=== PATIENT | male | born 1960 | race Caucasian/White ===

== ENCOUNTER 2019-01-08 10:33 | Inpatient (IN) ==
[2019-01-08] MEDS ORDERED: Sodium Chloride 0.9% 1,000 ML PRIMARY IV ONE ×2 (10:48→12:27)
[2019-01-08] MEDS ORDERED: ONDANSETRON 4 MG/2 ML VIAL IVP ONE (10:48)
[2019-01-08] MEDS ORDERED: HYDROmorphone 2 MG/1 ML IVP ONE ×3 (10:49→13:54)
[2019-01-08 11:11] LABS: BASOPHILS # (AUTO) 0.05 10*3/UL; BASOPHILS % (AUTO) 0.6 % (0-1); EOSINOPHILS # (AUTO) 0.15 10*3/UL; EOSINOPHILS % (AUTO) 1.8 % (0-8); Hematocrit [HCT] 42.8 % (42.0-52.0); Hemoglobin [HGB] 14.3 g/dL (14.0-18.0); LYMPHOCYTES # (AUTO) 1.52 10*3/uL; MEAN CORPUSCULAR HEMOGLOBIN 27.3 PG (27-31); MEAN CORPUSCULAR HGB CONC 33.4 g/dL (33-37); MEAN CORPUSCULAR VOLUME 81.8 FL (80-90); MEAN PLATELET VOLUME 8.8 FL (7.4-12.2); MONOCYTES # (AUTO) 0.45 10*3/UL (0.3-0.8); MONOCYTES % (AUTO) 5.5 % (5-15); NEUTROPHILS % (AUTO) 73.3 % (50-80); RED BLOOD COUNT 5.23 10^6/uL (4.70-6.10)
[2019-01-08 11:13] LABS: PLATELET MORPHOLOGY COMMENT NORMAL MORPHOLOGY (NORM); RBC MORPHOLOGY COMMENT NORMAL MORPHOLOGY (NORM); WBC MORPHOLOGY COMMENT NORMAL MORPHOLOGY (NORM)
[2019-01-08 11:24] LABS: BLOOD UREA NITROGEN 16 mg/dL (7-22); SERUM ALBUMIN 4.4 g/dL (3.5-4.8)
[2019-01-08 11:38] LABS: LIPASE 1737 IU/L (23-300)
[2019-01-08] MEDS ORDERED: HYDROmorphone 2 MG/1 ML ONE ×2 (12:16→13:47)
--- NOTE | 2019-01-08 12:31 | PDOC ---
HPI - History of Present Illness History of Present Illness: Is a very nice 58-year-old gentleman who comes in with abdominal pain this started this morning. He did have a pancreatitis episode 3 years ago related to alcohol. He stated that last Monday he had a few quite a few drinks. It is not an individual alcoholic pain is improved now he was given hydromorphone 2 mg in the ER and is on IV fluids CAT scan is pending. 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 He used to drink a lot but now is once weekly Past Medical History Medical History: Pancreatitis, hypertension, depression Surgical History: Hernia repair, and tonsils Tobacco Use: Former Smoker In the Past 12 Months, Have Used or Abuse Any of the Following Substance: None Alcohol Use: Occasionally Medication / Allergies Home Medications: Home Medications Medication Instructions Recorded Confirmed Type Atorvastatin Calcium [Lipitor] 20 mg PO DAILY 01/08/19 01/08/19 History FLUoxetine HCl [PROzac] 20 mg PO DAILY 01/08/19 01/08/19 History Hydrochlorothiazide 50 mg PO DAILY 01/08/19 History Allergies/Adverse Reactions: Allergies Allergy/AdvReac Type Severity Reaction Status Date / Time iodine AdvReac Anaphylaxis Verified 01/08/19 10:43 Iodine and Iodide Containing AdvReac Anaphylaxis Verified 01/08/19 10:43 Produc lisinopril AdvReac Anaphylaxis Verified 01/08/19 11:17 Review of Systems - Review of Systems All Systems: Reviewed & No Additional Complaints Except as Stated - Cardiovascular Cardiovascular: DENIES: Negative System Review, Chest Pain, Edema, Syncope, Palpitations, Orthopnea, Paroxysmal Nocturnal Dyspnea, Other, See HPI - Gastrointestinal Gastrointestinal / Abdominal: REPORTS: Nausea, Abdominal Pain. DENIES: Vomiting, Bloody Stool Exam - Vitals Vital Signs: Vital Signs Temperature 97.8 F Temperature Source Temporal Artery Scan Pulse Rate [Pulse Oximeter] 92 Respiratory Rate 16 Blood Pressure [Left Arm] 177/118 Pulse Ox 95 Oxygen Delivery Method Room Air Height 5 ft 9 in Weight 200 lb - General General Appearance: No Acute Distress, Cooperative - Head Head Exam: Normal Inspection, Normocephalic, Atraumatic - Eye Eye Exam: POSITIVE: Normal Appearance, PERRL, EOMI, No Scleral Icterus - Respiratory Respiratory Exam: POSITIVE: Clear to Auscultation - Bilaterally, Breathing Non Labored, Normal To Percussion, Normal to Percussion and Palpation - Cardiovascular Cardiovascular Exam: POSITIVE: RRR, No Murmur, No Clicks, No Gallops, No Rubs, PMI Non-Displaced - GI/Abdominal Additional GI/Abdominal Exam Details: Mild left upper quadrant pain and no guarding or rebound - Extremities Extremities Exam: POSITIVE: No Clubbing Present, No Edema Present, No Cyanosis Present Results - Labs CBC and BMP: 01/08/19 11:05 01/08/19 11:05 Assessment and Plan - Patient Problems (1) Pancreatitis, alcoholic, acute Current Visit: Yes Status: Acute Comment: IV fluids, IV pain control and by mouth Code(s): K85.20 - Alcohol induced acute pancreatitis without necrosis or infection (2) Hypertension Current Visit: Yes Status: Acute Comment: He was just started on the hydrochlorothiazide. Does not think it's working Code(s): I10 - Essential (primary) hypertension (3) Depression Current Visit: Yes Status: Acute Comment: Patient is on SSRI Code(s): F32.9 - Major depressive disorder, single episode, unspecified
--- NOTE | 2019-01-08 12:47 | DI ---
CT ABDOMEN SCAN WITHOUT IV CONTRAST, 01/08/2019 10:48 AM : Clinical History: Upper abdominal pain. The patient has an allergy to IV contrast. Previous Exam: None at this facility. IV Contrast: None administered. Oral Contrast: No oral contrast ordered. Rectal Contrast: No rectal contrast ordered. Lungs: Small left pleural effusion. Calcifications are present in the PDA and right coronary artery. Liver: Normal size. There is a 12 mm low-density lesion in the anterior aspect of the right lobe of t he liver that is close to water density and is consistent with a cyst. Gallbladder: Grossly normal. The common duct is estimated to measure 4 mm. Adrenal Glands: Normal. Spleen: Spleen size is normal but there is a 25 mm low-density lesion in the lower pole. Pancreas: The head and body of the pancreas are disproportionately larger than the distal body and ta il of the pancreas and there is infiltrative/inflammatory change present. This inflammatory/infiltrat honorio change extends into the second portion of the duodenum and extends inferiorly to the junction bet ween the second and third portions of the duodenum. The findings are most consistent with pancreatiti s. There are no pancreatic calcifications or evidence of pseudocysts or of an abscess cavity. Kidneys: Normal size, shape, position and contour. No hydronephrosis or hydroureter. No right renal o r ureteral calculi. There is a nonobstructing 4 mm calculus in a lower pole calyx of the left kidney. The left ureter is normal. Lymph Nodes: Normal. Masses: None. Ascites: No ascites. Free Air: None. Spine: Normal lower thoracic and lumbar spine. READIN. Disproportional enlargement of the head, neck, and proximal portions of the pancreas with [place] creatic inflammatory/infiltrative change. Inflammatory/infiltrative change extends to the second port ion of the duodenum and the inferior to the junction between the second and third portions of the duo denum. The findings are most consistent with acute pancreatitis with inflammatory change of the duode num. There is no pseudocyst or pancreatic calcification present. 2. 25 mm low-density lesion in the lower pole of the spleen. There is a 12 mm low-density lesion of the right lobe of the liver that presumably represents a cyst. 3. Normal gallbladder without evidence of choledocholithiasis. CT PELVIS SCAN WITHOUT IV CONTRAST, 01/08/2019 10:48 AM: Clinical History: See above. Previous Exam: None at this facility. Contrast: None administered. Masses: No masses or enhancing lesions. Ascites: None. Free Air: None. Lymph Nodes: No adenopathy. Appendix: Not identified. No cecal or right lower quadrant inflammatory mass. Small Bowel: Normal small bowel distal to the duodenum, terminal ileum, and ileocecal valve. Colon: Normal. The cecum is "malrotated". Bladder: Normal. Hernias: There is a small umbilical hernia through which only mesenteric fat has herniated. Bony Pelvis: Normal sacrum, pelvic bones, and hips. READING: Normal CT scan of the pelvis without IV contrast.
[2019-01-08] MEDS ORDERED: LIDOCAINE W/ SODIUM BICARB 0.5 ML SYR SUBD PRN (14:15)
[2019-01-08] MEDS ORDERED: ONDANSETRON 4 MG/2 ML VIAL IVP PRN (14:15)
[2019-01-08] MEDS: HYDROmorphone 2 MG/1 ML IVP PRN ×3 (15:31→23:16)
[2019-01-08] MEDS: Lactated Ringers 1,000 ML PRIMARY IV SCH (15:38)
[2019-01-08] MEDS: PANTOPRAZOLE IV 40 MG VIAL IVP SCH (15:38)
[2019-01-08] MEDS: HEPARIN 5000 UNIT/1 ML SUBCUT SCH ×2 (15:39→21:58)
--- NOTE | 2019-01-08 16:18 | PDOC ---
Abdomen/Flank HPI - General Chief Complaint: Abdomen Pain Stated Complaint: ABD Pain/Headach Date Seen by Provider: 01/08/19 Time Seen by Provider: 10:35 Source: POSITIVE: Patient Exam Limitations: POSITIVE: No limitations Nurse's Notes Reviewed & Considered: Yes - History of Present Illness Initial Comments: The patient is a 58-year-old male. He states that for approximately the past 24 hours he has had upper abdominal pain and a sensation of a "swollen abdomen". Patient states he was treated for pancreatitis 3 years ago, he states that the cause of this was alcohol. He states he used to abuse alcohol but now drinks on ly occasionally. He's had an appendectomy. He denies any vomiting or diarrhea. No known fevers. No melena, hematochezia, hematemesis, dysuria or hematuria. He states he was seen in the emergency room at [facility] last week for "hypoglycemia". Body Location Affected: REPORTS: Abdomen Timing: REPORTS: Gradual, Getting Worse Duration: <24 hours (Approximately 24 hours) Severity: Moderate Quality: REPORTS: Aching, Cramping, "Pain" Abdominal Pain Onset Location: REPORTS: RUQ, LUQ, Epigastric Abdominal Pain Radiation: REPORTS: No radiation Context: REPORTS: None Modifying Factors: improves with: Nothing Associated Symptoms: REPORTS: Denies symptoms Similar Symptoms Previously: Yes (3 years ago with pancreatitis) Recent Care Received: REPORTS: Denies Any Prior Injuries Related to Current Complaint?: No - Patient Home Medications Home Medications: Home Medications Atorvastatin Calcium [Lipitor] 20 mg PO DAILY 01/08/19 FLUoxetine HCl [PROzac] 20 mg PO DAILY 01/08/19 Hydrochlorothiazide 50 mg PO DAILY 01/08/19 - Patient Allergies Allergies/Adverse Reactions: Allergies Allergy/AdvReac Type Severity Reaction Status Date / Time iodine AdvReac Anaphylaxis Verified 01/08/19 10:43 Iodine and Iodide Containing AdvReac Anaphylaxis Verified 01/08/19 10:43 Produc lisinopril AdvReac Anaphylaxis Verified 01/08/19 11:17 Past Medical History - ronaldo HEMILLI History: Denies History Cardiovascular History: Hypertension Respiratory History: Denies History Gastrointestinal History: Pancreatitis Genitourinary History: Denies History Additional Endocrine History: States DX with hypoglycemic Musculoskeletal History: Joint Pain Neurological History: Denies History Blood Disorders: Denies History Psychiatric History: Denies History History of Sexually Transmitted Diseases: No Male Reproductive History: Denies History Cancer History: Denies History In Past Year Been Physically Harmed or Verbally Threatened: No History of MDRO: No History of Other Communicable Diseases: No Tobacco Use: Former Smoker In the Past 12 Months, Have Used or Abuse Any Substance: None Previous Surgical History: Yes Type / Date of Surgery: appendectomy, tonsillitis. 2x hernia in groin Anesthesia Reactions: No Significant Family History: No pertinent family hx Past Medical History Reviewed: Reviewed - Changes Made ROS - Limitations ROS Limitations: No Limitations Constitution: REPORTS: Denies Symptoms Cardiovascular: REPORTS: Denies Cardiac Symptoms Respiratory: REPORTS: Denies Resp Symptoms Neurological: REPORTS: Denies Neuro Symptoms Gastrointestinal: REPORTS: Abdominal Pain Endocrine: REPORTS: Denies Symptoms Musculoskeletal: REPORTS: Denies MS Symptoms Genitourinary: REPORTS: Denies Symptoms Eyes: REPORTS: Denies Symptoms ENT: REPORTS: Denies Symptoms Skin: REPORTS: Denies Skin Symptoms Lympathic: REPORTS: Denies Lympathic Symptoms Immunologic: POSITIVE: Denies Symptoms Psychiatric: POSITIVE: Denies Psych Symptoms Abdominal/Flank Pain PE - General Appearance General Appearance: POSITIVE: Alert, Cooperative, No Evidence of Trauma, Moderate Distress (Due to upper abdominal pain). NEGATIVE: No Acute Distress - HEENT HEENT: POSITIVE: Head Inspection Nml, Eyes Inspection Nml, Ears Inspection Nml, Nose Inspection Nml, Oral/Dental Inspect. Nml, Pharynx Inspect. Nml, PERRL, EOMI - Neck Neck: POSITIVE: Normal Inspection, No Apparent Injury - Respiratory Respiratory: POSITIVE: No Respiratory Distress, Breath Sounds Normal, Chest Non-Tender - Cardiovascular Cardiovascular: POSITIVE: Regular Rate and Rhythm, Heart Sounds Normal, Equal Pulses, Strong Pulses Peripheral Pulses: Radial (R): 2+, Radial (L): 2+ - Chest Chest: POSITIVE: Non Tender - Abdomen Abdomen: Soft: (RLQ), (LLQ), Normal Bowel Sounds: (All Quadrants), Denies Tenderness: (RLQ), (LLQ), No Splenomegaly: (All Quadrants), No Hepatomegaly: (All Quadrants), No Guarding: (All Quadrants), No Rebound: (All Quadrants), No Palpable Pulse: (All Quadrants), No Palpabale Mass: (All Quadrants), No Distention: (All Quadrants), No Rigidity: (All Quadrants), Tenderness Noted: (RUQ), (LUQ) Additional Abdominal Details: Abdominal examination shows bowel sounds are present. Patient does complain of pain on palpation over the upper abdomen, especially over the epigastric area. No masses, organomegaly or rebound. - Back Back: POSITIVE: Normal Inspection. 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 Lab Results Reviewed by Me: Yes (lipase 1737) CBC and BMP: 01/08/19 11:05 01/08/19 11:05 Lab Results:: Laboratory Results 01/08/19 01/08/19 01/08/19 11:05 11:05 12:08 WBC 8.19 RBC 5.23 Hgb 14.3 Hct 42.8 MCV 81.8 MCH 27.3 MCHC 33.4 RDW Std Deviation 48.6 RDW Coeff of Kayla 16.4 H Plt Count 353 H MPV 8.8 Immature Gran % (Auto) 0.2 Neut % (Auto) 73.3 Lymph % (Auto) 18.6 Ray % (Auto) 5.5 Eos % (Auto) 1.8 Baso % (Auto) 0.6 Immature Gran # (Auto) 0.02 Neut # (Auto) 6.00 Lymph # (Auto) 1.52 Ray # (Auto) 0.45 Eos # (Auto) 0.15 Baso # (Auto) 0.05 WBC Morphology Comment Normal morphology Plt Morphology Comment Normal morphology RBC Morph Comment Normal morphology Sodium 134 L Potassium 4.0 Chloride 103 Carbon Dioxide 22 L Anion Gap 9 BUN 16 Creatinine 1.0 Estimated GFR > 60 BUN/Creatinine Ratio 16.00 Glucose 131 H Calculated Osmolality 280.0 Calcium 9.5 Total Bilirubin 0.5 AST 27 ALT 20 L Alkaline Phosphatase 146 H Total Protein 7.7 Albumin 4.4 Globulin 3.4 Albumin/Globulin Ratio 1.20 L Amylase 170 H Lipase 1737 H* Serum Alcohol < 10 - Patient's Progress Pain Medication Addressed: POSITIVE: Yes (Patient given 2 mg of Dilaudid IV for pain, 4 mg of Zofran IV. Patient was later given 4 mg of morphine sulfate for pain) School/Work Release Addressed: POSITIVE: Not Applicable Re-examine Time: 12:15 Re-Examine Comment: Patient hydrated with 2 L of normal saline and was given narcotic analgesia as above. He feels better on discharge. Case was discussed with Dr. Diamond, hospitalist, who is going to admit patient for further evaluation and treatment. Status: POSITIVE: Improved, Re-Examined - Consult Consult (If Yes, Name of Consulting MD & Time Called): Yes (Dr. Diamond, hospitalist, [id number]) Consulting MD will see pt:: POSITIVE: [facility] Admit Counseled: POSITIVE: Patient, RE: Lab Results, RE: Radiology Results, RE: DX, RE: Need for F/U Patient Care Time - Estimated PCT Patient Care Time (In Minutes): 45 Vital Signs - Recent Vital Signs Vital Signs: Vital Signs (Last 8 hours) Temp Pulse Pulse Resp BP BP Pulse Ox 01/08/19 14:10 97.8 F 74 16 164/101 96 01/08/19 10:35 97.8 F 92 16 177/118 95 - VS Reviewed Vital Signs Reviewed: Yes Discharge Clinical Impression: Pancreatitis Discharge Disposition: Admit to Inpatient Condition: Stable Date Decision to Admit to Inpatient: 01/08/19 Time Decision to Admit to Inpatient: 12:15
--- NOTE | 2019-01-08 18:23 | DI ---
MRI CHOLANGIOPANCREATOGRAM, 01/08/2019 2:19 PM: Clinical History: Pancreatitis. Previous Exam: None at this facility. MRCP T1 breath hold in phase and out of phase axial images are supplemented with respiratory gated 3D T2 weighted volume acquired coronal scans through the region of the biliary tree and the pancreas. A xial T2 weighted axial and coronal T2 weighted fat saturated breath hold sequences are performed. Nilo eberry juice was used as an oral contrast. The gallbladder is well distended. No gallstones are visualized. The common hepatic duct measures 4 m m and the common bile duct measures 4-5 mm. The duct in the pancreatic head cannot be followed into t he duodenum because of extensive fluid in the retroperitoneal space. There are no common duct stones seen. There is edema of the pancreatic head with fluid surrounding the pancreas and duodenum in the r etroperitoneal space. The remainder of the pancreas is normal. The liver is unremarkable except for a 12 mm cyst in the right lobe anteriorly. There is hyperintensity in the lesion in the lower pole the spleen consistent with a cyst that measures 3 cm in diameter. Readin. There is no intrahepatic or extrahepatic biliary dilatation although the common bile duct could n ot be followed all away to the duodenum. The gallbladder is distended but without gallstones. No comm on duct stone is visualized. 2. There is edema of the pancreatic head with fluid extending into the retroperitoneal space surroun ding the second portion of the duodenum and extending inferiorly. 3. The liver is normal. There is a cyst in the right lobe of the liver corresponding to the low-dens ity lesion seen on the CT scan. There is a cyst of the inferior pole of the spleen.
[2019-01-09] MEDS: Lactated Ringers 1,000 ML PRIMARY IV SCH ×3 (00:34→18:05)
[2019-01-09] MEDS: HYDROmorphone 2 MG/1 ML IVP PRN ×4 (03:21→15:58)
[2019-01-09 05:07] LABS: BLOOD UREA NITROGEN 13 mg/dL (7-22); BUN/CREATININE RATIO 16.25 (6-20); SERUM ALBUMIN 3.7 g/dL (3.5-4.8)
[2019-01-09] MEDS: HEPARIN 5000 UNIT/1 ML SUBCUT SCH ×3 (06:56→22:52)
[2019-01-09 08:03] LABS: LIPASE 2913 IU/L (23-300)
[2019-01-09] MEDS: PANTOPRAZOLE IV 40 MG VIAL IVP SCH (08:35)
[2019-01-09] MEDS: FLUoxetine 20 MG CAPSULE PO SCH (08:35)
--- NOTE | 2019-01-09 10:02 | PDOC(PROG) ---
Interval History: Patient feels a little better in regards into his pain on physical exam I cannot elicit it Objective : Data - Labs CBC and BMP: 01/08/19 11:05 01/09/19 04:25 Objective : Exam - General General Appearance: Cooperative - Head Head Exam: Normal Inspection, Normocephalic, Atraumatic - Respiratory Respiratory Exam: Clear to Auscultation - Bilaterally, Breathing Non Labored, Normal To Percussion, Normal to Percussion and Palpation - Cardiovascular Cardiovascular Exam: RRR, No Murmur, No Clicks, No Gallops, No Rubs, PMI Non- Displaced - GI/Abdominal GI/Abdominal Exam: Normal Bowel Sounds, Non Tender, Non Distended, Soft, No Masses, No Hepatomegaly, No Splenomegaly, No Organomegaly Assessment and Plan - Patient Problems (1) Pancreatitis, alcoholic, acute Current Visit: Yes Status: Acute Comment: Continue IV fluids pain management abdominal pain is improved even though his lipase is elevated LFTs remain normal continue current treatment hemodynamically stable might consider repeating an MRI tomorrow of his abdomen. Dr. Zaragoza cannot see the doctor of the way through because of the fluid and inflammation I will order an ultrasound of his gallbladder today and make sure there is no cholecystitis or stones Code(s): K85.20 - Alcohol induced acute pancreatitis without necrosis or infection (2) Hypertension Current Visit: Yes Status: Acute Comment: Table start patient on Norvasc 10 mg Code(s): I10 - Essential (primary) hypertension (3) Depression Current Visit: Yes Status: Acute Comment: Continue SSRI Code(s): F32.9 - Major depressive disorder, single episode, unspecified
--- NOTE | 2019-01-09 11:22 | DI ---
GALLBLADDER AND LIVER ULTRASOUND, 01/09/2019 10:01 AM: Clinical History: Pancreatitis. Previous Exam: None at this facility. Technique: Right upper quadrant scanned in multiple projections with Color Doppler ultrasound. Liver Texture: Normal sonographic texture. There is a 10 x 12 x 10 mm simple cyst in the right lobe o f the liver. Liver Size: Normal. 144 mm. Gallbladder: Markedly distended. No gallstones. Normal gallbladder wall thickness. Negative Miller's sign. Common Bile Duct: Extremely difficult to visualize but measures 6 mm. Pancreas: Completely obscured by gas. Right Kidney: Normal right kidney. IVC and Aorta: Completely obscured by gas. READING: Distended but normal-appearing gallbladder. The common bile duct measures 6 mm. The right kidney is n ormal. Remaining structures are obscured by gas.
[2019-01-09] MEDS ORDERED: Prochlorperazine Edisylate Inj 10mg/2ml vial IVP PRN (13:42)
[2019-01-09] MEDS ORDERED: Acetaminophen 1000mg Inj 1,000 MG/100 ML VIAL IV ONE (19:35)
[2019-01-10] MEDS: HYDROmorphone 2 MG/1 ML IVP PRN ×3 (01:10→08:38)
[2019-01-10] MEDS: Lactated Ringers 1,000 ML PRIMARY IV SCH ×2 (03:03→10:20)
[2019-01-10 05:53] LABS: BLOOD UREA NITROGEN 12 mg/dL (7-22); SERUM ALBUMIN 3.2 g/dL (3.5-4.8)
[2019-01-10 06:39] LABS: LIPASE 1862 IU/L (23-300)
[2019-01-10] MEDS: HEPARIN 5000 UNIT/1 ML SUBCUT SCH (07:01)
[2019-01-10] MEDS: FLUoxetine 20 MG CAPSULE PO SCH (08:07)
[2019-01-10] MEDS: PANTOPRAZOLE IV 40 MG VIAL IVP SCH (08:08)
[2019-01-10 08:36] VITALS: RESP 16; O2SAT 91
[2019-01-10 12:38] VITALS: BP 132/79; TEMP 98.2
[2019-01-10] MEDS ORDERED: ACETAMINOPHEN 325 MG TABLET PO PRN (12:41)
--- NOTE | 2019-01-10 14:51 | DCSUMMARY ---
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 Extensive workup was done and it seemed consistent with alcoholic pancreatitis. There was no evidence of any common bile duct obstruction. Common bile duct was of normal caliber on ultrasound even. Patient's lipase peaked out in the and did drop prior to discharge. On the date of discharge, the patient wanted to try to eat. He had 2 cups of beef broth and some popsicles, and had no return of any abdominal pain and he wished to go home. I warned the patient that he should never drink alcohol again as it could cause another bout of acute pancreatitis and even cause chronic pancreatitis. The patient denies any chest pain, shortness breath, nausea or vomiting and he states his abdominal pain has resolved. Assessment and Plan: 1. As per discharge assessments noted 2. Disposition: Patient is discharged home. 3. Condition on discharge, stable and improved. 4. Diet: regular diet 5. Activities: resume normal activities 6. Follow-Up: 1. Patient lives in [place] and should see his primary care physician there. 7. Medications at the Time of Discharge: Home Medications Medication Instructions Recorded Confirmed Type Atorvastatin Calcium [Lipitor] 20 mg PO DAILY 01/08/19 01/08/19 History FLUoxetine HCl [PROzac] 20 mg PO DAILY 01/08/19 01/08/19 History Amlodipine Besylate 10 mg PO DAILY 01/09/19 01/09/19 History Polyvinyl Alcohol [Artificial 1 drp EACH EYE PRN PRN 01/09/19 01/09/19 History Tears] 8. Time, care, counseling and coordination of care for this discharge is less than 30 minutes. Exam - Vitals Vital Signs: Vital Signs Temperature 98.2 F Temperature Source Temporal Artery Scan Pulse Rate [Pulse Oximeter] 74 Pulse Rate 74 Respiratory Rate 16 Blood Pressure [Left Arm] 132/79 Blood Pressure 164/101 Pulse Ox 91 Oxygen Flow Rate 1 Oxygen Delivery Method Room Air Height 5 ft 9 in Weight 214 lb 9.6 oz - General General Appearance: No Acute Distress, Cooperative - Eye Eye Exam: POSITIVE: No Scleral Icterus - ENT ENT Exam: POSITIVE: Mucous Membranes Moist - Respiratory Respiratory Exam: POSITIVE: Clear to Auscultation - Bilaterally, Breathing Non Labored - Cardiovascular Cardiovascular Exam: POSITIVE: RRR, No Murmur, No Clicks, No Gallops, No Rubs, No JVD - GI/Abdominal GI/Abdominal Exam: POSITIVE: Normal Bowel Sounds, Non Tender, Non Distended, Soft - Extremities Extremities Exam: POSITIVE: No Clubbing Present, No Edema Present, No Cyanosis Present - Neurological Neurological Exam: POSITIVE: Alert, Oriented x 3, No Facial Droop, Speech Intact / Clear, Moves All Extremities Equally Data Peritnent Studies: Laboratory Results 01/09/19 01/10/19 14:40 04:20 Sodium 134 L Potassium 3.7 L Chloride 103 Carbon Dioxide 24 Anion Gap 7 BUN 12 Creatinine 0.8 Estimated GFR > 60 BUN/Creatinine Ratio 15.00 Glucose 73 L Calculated Osmolality 276.0 Calcium 8.9 Total Bilirubin 0.5 AST 18 L ALT 20 L Alkaline Phosphatase 103 Total Protein 5.8 L Albumin 3.2 L Globulin 2.6 Albumin/Globulin Ratio 1.20 L Lipase 2356 H* 1862 H* Patient Problems - Patient Problem List (1) Pancreatitis, alcoholic, acute Current Visit: Yes Status: Acute Code(s): K85.20 - Alcohol induced acute quiñonse creatitis without necrosis or infection Qualifiers: Acute pancreatitis complication: no infection or necrosis Qualified Code(s): K85.20 - Alcohol induced acute pancreatitis without necrosis or infection Category: Medical (2) Hypertension Current Visit: Yes Status: Acute Code(s): I10 - Essential (primary) hypertension Qualifiers: Hypertension type: essential hypertension Qualified Code(s): I10 - Essential (primary) hypertension Category: Medical
== END 2019-01-10 14:45 | disposition home or self-care (01) | DRG 440 ==
LOC: ER 10:33 → MED/SURG 13:56
PROVIDERS: ADMIT Internal Medicine; ATTEND Internal Medicine